=== PATIENT | male | born 1940 | race Caucasian/White ===

== ENCOUNTER 2016-05-12 12:18 | Outpatient (CLI) | payer OTHER | END 2016-05-12 12:19 | disposition home or self-care (01) | DX: Z79.01 Long term (current) use of anticoagulants (principal); I48.91 Unspecified atrial fibrillation ==

== ENCOUNTER 2016-05-15 12:39 | Outpatient (CLI) | payer OTHER | END 2016-05-15 12:40 | disposition home or self-care (01) | DX: Z79.01 Long term (current) use of anticoagulants (principal); I48.91 Unspecified atrial fibrillation ==

== ENCOUNTER 2016-05-19 12:33 | Outpatient (CLI) | payer OTHER | END 2016-05-19 12:34 | disposition home or self-care (01) | DX: Z79.01 Long term (current) use of anticoagulants (principal); I48.91 Unspecified atrial fibrillation ==

== ENCOUNTER 2016-05-25 12:29 | Outpatient (CLI) | payer OTHER | END 2016-05-25 12:30 | disposition home or self-care (01) | DX: Z79.01 Long term (current) use of anticoagulants (principal); I48.91 Unspecified atrial fibrillation ==

== ENCOUNTER 2016-06-02 13:46 | Outpatient (CLI) | payer OTHER | END 2016-06-02 13:47 | disposition home or self-care (01) | DX: T84.50XA Infection and inflammatory reaction due to unspecified internal joint prosthesis, initial encounter (principal); Z79.01 Long term (current) use of anticoagulants; I48.91 Unspecified atrial fibrillation ==

== ENCOUNTER 2016-06-09 15:21 | Outpatient (CLI) | payer OTHER | END 2016-06-09 15:22 | disposition home or self-care (01) | DX: Z79.01 Long term (current) use of anticoagulants (principal); I48.91 Unspecified atrial fibrillation ==

== ENCOUNTER 2016-06-18 12:43 | Outpatient (CLI) | payer OTHER | END 2016-06-18 12:44 | disposition home or self-care (01) | DX: Z79.01 Long term (current) use of anticoagulants (principal); I48.91 Unspecified atrial fibrillation ==

== ENCOUNTER 2016-06-25 13:17 | Outpatient (CLI) | payer OTHER | END 2016-06-25 13:18 | disposition home or self-care (01) | DX: Z79.01 Long term (current) use of anticoagulants (principal); I48.91 Unspecified atrial fibrillation ==

== ENCOUNTER 2016-07-06 13:40 | Outpatient (CLI) | payer OTHER | END 2016-07-06 13:41 | disposition home or self-care (01) | DX: Z79.01 Long term (current) use of anticoagulants (principal); I48.91 Unspecified atrial fibrillation ==

== ENCOUNTER 2016-07-20 13:02 | Outpatient (CLI) | payer OTHER | END 2016-07-20 13:03 | disposition home or self-care (01) | DX: Z79.01 Long term (current) use of anticoagulants (principal); I48.91 Unspecified atrial fibrillation ==

== ENCOUNTER 2016-09-29 13:56 | Outpatient (CLI) | payer OTHER | END 2016-09-29 13:57 | disposition home or self-care (01) | LOC: LAB.F 13:56 | PROVIDERS: ATTEND Pharmacist Pharmacotherapy | DX: I48.91 Unspecified atrial fibrillation (principal); Z79.01 Long term (current) use of anticoagulants | CPT/HCPCS: 85610 ==

== ENCOUNTER 2016-11-10 12:37 | Outpatient (CLI) | payer OTHER | END 2016-11-10 12:38 | disposition home or self-care (01) | DX: Z79.01 Long term (current) use of anticoagulants (principal) ==

== ENCOUNTER 2016-12-30 14:41 | Outpatient (CLI) | payer OTHER | END 2016-12-30 14:42 | disposition home or self-care (01) | LOC: LAB.F 14:41 | PROVIDERS: ATTEND Pharmacist Pharmacotherapy | DX: I48.91 Unspecified atrial fibrillation (principal); Z79.01 Long term (current) use of anticoagulants | CPT/HCPCS: 85610 ==

== ENCOUNTER 2017-02-16 12:48 | Outpatient (CLI) | payer OTHER | END 2017-02-16 12:49 | disposition home or self-care (01) | LOC: LAB.F 12:48 | PROVIDERS: ATTEND Pharmacist Pharmacotherapy | DX: I48.91 Unspecified atrial fibrillation (principal); Z79.01 Long term (current) use of anticoagulants | CPT/HCPCS: 85610 ==

== ENCOUNTER 2017-04-02 13:16 | Outpatient (CLI) | payer OTHER | END 2017-04-02 13:17 | disposition home or self-care (01) | LOC: LAB.F 13:16 | PROVIDERS: ATTEND Pharmacist Pharmacotherapy | DX: I48.91 Unspecified atrial fibrillation (principal); Z79.01 Long term (current) use of anticoagulants | CPT/HCPCS: 85610 ==

== ENCOUNTER 2017-05-20 14:43 | Outpatient (CLI) | payer OTHER | END 2017-05-20 14:44 | disposition home or self-care (01) | LOC: LAB.F 14:43 | PROVIDERS: ATTEND Pharmacist Pharmacotherapy | DX: I48.91 Unspecified atrial fibrillation (principal); Z79.01 Long term (current) use of anticoagulants | CPT/HCPCS: 85610 ==

== ENCOUNTER 2017-07-14 12:57 | Outpatient (CLI) | payer OTHER | END 2017-07-14 12:58 | disposition home or self-care (01) | LOC: LAB.F 12:57 | PROVIDERS: ATTEND Pharmacist Pharmacotherapy | DX: I48.91 Unspecified atrial fibrillation (principal); Z79.01 Long term (current) use of anticoagulants | CPT/HCPCS: 85610 ==

== ENCOUNTER 2017-09-23 14:29 | Outpatient (CLI) | payer OTHER | END 2017-09-23 14:30 | disposition home or self-care (01) | LOC: LAB.F 14:29 | PROVIDERS: ATTEND Pharmacist Pharmacotherapy | DX: I48.91 Unspecified atrial fibrillation (principal); Z79.01 Long term (current) use of anticoagulants | CPT/HCPCS: 85610 ==

== ENCOUNTER 2017-10-18 13:01 | Outpatient (CLI) | payer OTHER | END 2017-10-18 13:02 | disposition home or self-care (01) | LOC: LAB.F 13:01 | PROVIDERS: ATTEND Pharmacist Pharmacist Clinician (PhC)/ Clinical Pharmacy Specialist | DX: I48.2 Chronic atrial fibrillation (principal); Z79.01 Long term (current) use of anticoagulants | CPT/HCPCS: 85610 ==

== ENCOUNTER 2017-10-25 14:15 | Outpatient (CLI) | END 2017-10-25 14:16 | disposition home or self-care (01) ==

== ENCOUNTER 2017-11-01 14:22 | Outpatient (CLI) | payer OTHER | END 2017-11-01 14:23 | disposition home or self-care (01) | LOC: LAB.F 14:22 | PROVIDERS: ATTEND Pharmacist Pharmacist Clinician (PhC)/ Clinical Pharmacy Specialist | DX: I48.2 Chronic atrial fibrillation (principal); Z79.01 Long term (current) use of anticoagulants | CPT/HCPCS: 85610 ==

== ENCOUNTER 2017-11-08 13:37 | Outpatient (CLI) | payer OTHER | END 2017-11-08 13:38 | disposition home or self-care (01) | LOC: LAB.F 13:37 | PROVIDERS: ATTEND Pharmacist Pharmacist Clinician (PhC)/ Clinical Pharmacy Specialist | DX: I48.2 Chronic atrial fibrillation (principal); Z79.01 Long term (current) use of anticoagulants | CPT/HCPCS: 85610 ==

== ENCOUNTER 2017-11-25 13:26 | Outpatient (CLI) | payer OTHER | END 2017-11-25 13:27 | disposition home or self-care (01) | LOC: LAB.F 13:26 | PROVIDERS: ATTEND Pharmacist Pharmacist Clinician (PhC)/ Clinical Pharmacy Specialist | DX: I48.2 Chronic atrial fibrillation (principal); Z79.01 Long term (current) use of anticoagulants | CPT/HCPCS: 85610 ==

== ENCOUNTER 2018-01-20 13:40 | Outpatient (CLI) | payer OTHER | END 2018-01-20 13:41 | disposition home or self-care (01) | LOC: LAB.F 13:40 | PROVIDERS: ATTEND Pharmacist Pharmacist Clinician (PhC)/ Clinical Pharmacy Specialist | DX: I48.2 Chronic atrial fibrillation (principal); Z79.01 Long term (current) use of anticoagulants | CPT/HCPCS: 85610 ==

== ENCOUNTER 2018-03-17 13:50 | Outpatient (CLI) | payer OTHER ==
[2018-03-17 18:51] LABS: INR 2.1 (0.8-1.2); PT - PROTHROMBIN TIME 23.4 secs (9.9-12.6)
== END 2018-03-17 13:51 | disposition home or self-care (01) ==
LOC: LAB.F 13:50
PROVIDERS: ATTEND Pharmacist Pharmacist Clinician (PhC)/ Clinical Pharmacy Specialist
DX: I48.2 Chronic atrial fibrillation (principal); Z79.01 Long term (current) use of anticoagulants
CPT/HCPCS: 36415; 85610

== ENCOUNTER 2018-04-05 12:27 | Outpatient (CLI) | payer OTHER | END 2018-04-05 12:28 | disposition home or self-care (01) | LOC: LAB.F 12:27 | PROVIDERS: ATTEND Pharmacist Pharmacist Clinician (PhC)/ Clinical Pharmacy Specialist | DX: I48.2 Chronic atrial fibrillation (principal); Z79.01 Long term (current) use of anticoagulants | CPT/HCPCS: 85610 ==

== ENCOUNTER 2018-05-10 13:02 | Outpatient (CLI) | payer OTHER | END 2018-05-10 13:03 | disposition home or self-care (01) | LOC: LAB.F 13:02 | PROVIDERS: ATTEND Pharmacist Pharmacist Clinician (PhC)/ Clinical Pharmacy Specialist | DX: I48.2 Chronic atrial fibrillation (principal); Z79.01 Long term (current) use of anticoagulants | CPT/HCPCS: 85610 ==

== ENCOUNTER 2018-06-21 13:32 | Outpatient (CLI) | payer OTHER | END 2018-06-21 13:33 | disposition home or self-care (01) | LOC: LAB.F 13:32 | PROVIDERS: ATTEND Pharmacist Pharmacist Clinician (PhC)/ Clinical Pharmacy Specialist | DX: I48.2 Chronic atrial fibrillation (principal); Z79.01 Long term (current) use of anticoagulants | CPT/HCPCS: 85610 ==

== ENCOUNTER 2018-07-19 13:11 | Outpatient (CLI) | payer OTHER | END 2018-07-19 13:12 | disposition home or self-care (01) | LOC: LAB.F 13:11 | PROVIDERS: ATTEND Pharmacist Pharmacist Clinician (PhC)/ Clinical Pharmacy Specialist | DX: I48.2 Chronic atrial fibrillation (principal); Z79.01 Long term (current) use of anticoagulants | CPT/HCPCS: 85610 ==

== ENCOUNTER 2018-08-30 12:45 | Outpatient (CLI) | payer OTHER | END 2018-08-30 12:46 | disposition home or self-care (01) | LOC: LAB.F 12:45 | PROVIDERS: ATTEND Pharmacist Pharmacist Clinician (PhC)/ Clinical Pharmacy Specialist | DX: I48.2 Chronic atrial fibrillation (principal); Z79.01 Long term (current) use of anticoagulants | CPT/HCPCS: 85610 ==

== ENCOUNTER 2018-10-11 12:44 | Outpatient (CLI) | payer OTHER | END 2018-10-11 12:45 | disposition home or self-care (01) | LOC: LAB.F 12:44 | PROVIDERS: ATTEND Pharmacist | DX: I48.2 Chronic atrial fibrillation (principal); Z79.01 Long term (current) use of anticoagulants | CPT/HCPCS: 85610 ==

== ENCOUNTER 2018-11-22 13:57 | Outpatient (CLI) | payer OTHER | END 2018-11-22 13:58 | disposition home or self-care (01) | LOC: LAB.S 13:57 | PROVIDERS: ATTEND Pharmacist | DX: Z79.01 Long term (current) use of anticoagulants (principal); I48.2 Chronic atrial fibrillation | CPT/HCPCS: 85610 ==

== ENCOUNTER 2018-12-29 13:26 | Outpatient (CLI) | payer OTHER | END 2018-12-29 13:27 | disposition home or self-care (01) | LOC: LAB.S 13:26 | PROVIDERS: ATTEND Pharmacist | DX: Z79.01 Long term (current) use of anticoagulants (principal); I48.2 Chronic atrial fibrillation | CPT/HCPCS: 85610 ==

== ENCOUNTER 2019-01-30 12:27 | Outpatient (CLI) | payer OTHER | END 2019-01-30 12:28 | disposition home or self-care (01) | LOC: LAB.S 12:27 | PROVIDERS: ATTEND Pharmacist Pharmacist Clinician (PhC)/ Clinical Pharmacy Specialist | DX: Z51.81 Encounter for therapeutic drug level monitoring (principal); Z79.01 Long term (current) use of anticoagulants | CPT/HCPCS: 85610 ==

== ENCOUNTER 2019-02-02 08:00 | Outpatient (CLI) | payer OTHER | END 2019-02-02 23:59 | disposition home or self-care (01) | LOC: LAB.S 08:00 | PROVIDERS: ATTEND Pharmacist | DX: Z79.01 Long term (current) use of anticoagulants (principal); I48.91 Unspecified atrial fibrillation | CPT/HCPCS: 85610 ==

== ENCOUNTER 2019-02-06 12:45 | Outpatient (CLI) | payer OTHER | END 2019-02-06 12:46 | disposition home or self-care (01) | LOC: LAB.S 12:45 | PROVIDERS: ATTEND Pharmacist | DX: Z79.01 Long term (current) use of anticoagulants (principal); I48.91 Unspecified atrial fibrillation | CPT/HCPCS: 85610 ==

== ENCOUNTER 2019-02-09 14:16 | Outpatient (CLI) | payer OTHER | END 2019-02-09 14:17 | disposition home or self-care (01) | LOC: LAB.S 14:16 | PROVIDERS: ATTEND Pharmacist | DX: Z79.01 Long term (current) use of anticoagulants (principal); I48.91 Unspecified atrial fibrillation | CPT/HCPCS: 85610 ==

== ENCOUNTER 2019-02-16 12:27 | Outpatient (CLI) | payer OTHER | END 2019-02-16 12:28 | disposition home or self-care (01) | LOC: LAB.S 12:27 | PROVIDERS: ATTEND Pharmacist | DX: Z79.01 Long term (current) use of anticoagulants (principal); I48.91 Unspecified atrial fibrillation | CPT/HCPCS: 85610 ==

== ENCOUNTER 2019-03-01 14:48 | Outpatient (CLI) | payer OTHER | END 2019-03-01 14:49 | disposition home or self-care (01) | LOC: LAB.S 14:48 | PROVIDERS: ATTEND Pharmacist | DX: Z79.01 Long term (current) use of anticoagulants (principal); I48.91 Unspecified atrial fibrillation | CPT/HCPCS: 85610 ==

== ENCOUNTER 2019-04-03 13:12 | Outpatient (CLI) | payer OTHER | END 2019-04-03 13:13 | disposition home or self-care (01) | LOC: LAB.S 13:12 | PROVIDERS: ATTEND Pharmacist | DX: Z79.01 Long term (current) use of anticoagulants (principal); I48.91 Unspecified atrial fibrillation | CPT/HCPCS: 85610 ==

== ENCOUNTER 2019-05-01 13:16 | Outpatient (CLI) | payer OTHER | END 2019-05-01 13:17 | disposition home or self-care (01) | LOC: LAB.S 13:16 | PROVIDERS: ATTEND Pharmacist | DX: Z79.01 Long term (current) use of anticoagulants (principal); I48.91 Unspecified atrial fibrillation | CPT/HCPCS: 85610 ==

== ENCOUNTER 2019-05-15 13:04 | Outpatient (CLI) | payer MEDICARE, OTHER | END 2019-05-15 13:05 | disposition home or self-care (01) | LOC: LAB.S 13:04 | PROVIDERS: ATTEND Pharmacist | DX: Z79.01 Long term (current) use of anticoagulants (principal); I48.91 Unspecified atrial fibrillation | CPT/HCPCS: 85610 ==

== ENCOUNTER 2019-06-14 14:11 | Outpatient (CLI) | payer OTHER | END 2019-06-14 14:12 | disposition home or self-care (01) | LOC: LAB.S 14:11 | PROVIDERS: ATTEND Pharmacist | DX: I48.91 Unspecified atrial fibrillation (principal); Z79.01 Long term (current) use of anticoagulants | CPT/HCPCS: 85610 ==

== ENCOUNTER 2019-10-03 13:53 | Outpatient (CLI) | payer OTHER | END 2019-10-03 13:54 | disposition home or self-care (01) | LOC: LAB.S 13:53 | PROVIDERS: ATTEND Nurse Practitioner | DX: I48.91 Unspecified atrial fibrillation (principal); Z79.01 Long term (current) use of anticoagulants | CPT/HCPCS: 85610 ==

== ENCOUNTER 2019-12-13 13:50 | Outpatient (CLI) | payer OTHER | END 2019-12-13 13:51 | disposition home or self-care (01) | LOC: LAB.S 13:50 | PROVIDERS: ATTEND Nurse Practitioner | DX: Z79.01 Long term (current) use of anticoagulants (principal); I48.91 Unspecified atrial fibrillation | CPT/HCPCS: 85610 ==

== ENCOUNTER 2020-01-11 14:23 | Outpatient (CLI) | payer OTHER | END 2020-01-11 14:24 | disposition home or self-care (01) | LOC: LAB.S 14:23 | PROVIDERS: ATTEND Nurse Practitioner | DX: I48.91 Unspecified atrial fibrillation (principal); Z79.01 Long term (current) use of anticoagulants | CPT/HCPCS: 85610 ==

== ENCOUNTER 2020-02-29 13:42 | Outpatient (CLI) | payer OTHER | END 2020-02-29 13:43 | disposition home or self-care (01) | LOC: LAB.S 13:42 | PROVIDERS: ATTEND Nurse Practitioner | DX: I48.91 Unspecified atrial fibrillation (principal); Z79.01 Long term (current) use of anticoagulants | CPT/HCPCS: 85610 ==

== ENCOUNTER 2020-03-21 14:12 | Outpatient (CLI) | payer OTHER | END 2020-03-21 14:13 | disposition home or self-care (01) | LOC: LAB.S 14:12 | PROVIDERS: ATTEND Nurse Practitioner | DX: I48.91 Unspecified atrial fibrillation (principal); Z79.01 Long term (current) use of anticoagulants | CPT/HCPCS: 85610 ==

== ENCOUNTER 2020-03-25 09:51 | Outpatient (CLI) | payer OTHER ==
[2020-03-25 15:36] LABS: BASOPHILS # (AUTO) 0.1 10^3/uL (0.0-0.1); BASOPHILS % (AUTO) 0.8 %; EOSINOPHILS # (AUTO) 0.6 10^3/uL (0.0-0.7); EOSINOPHILS % (AUTO) 8.3 %; HGB - HEMOGLOBIN 13.8 g/dL (14.0-18.0); LYMPHOCYTES # (AUTO) 1.6 10^3/uL (1.5-3.5); LYMPHOCYTES % (AUTO) 24.1 %; MEAN CORPUSCULAR HGB CONC 32.9 g/dL (32.0-36.0); MEAN CORPUSCULAR VOLUME 91.1 fL (80.0-94.0); MEAN PLATELET VOLUME 10.1 fL (7.4-11.4); MONOCYTES # (AUTO) 0.7 10^3/uL (0.0-1.0); MONOCYTES % (AUTO) 10.9 %; NEUTROPHILS # (AUTO) 3.7 10^3/uL (1.5-6.6); NEUTROPHILS % (AUTO) 55.7 %; PLT - PLATELET COUNT 293 10^3/uL (130-450); RED CELL DISTRIBUTION WIDTH 13.7 % (12.0-15.0); WHITE BLOOD COUNT 6.6 x10^3/uL (4.8-10.8)
[2020-03-25 15:50] LABS: ALBUMIN 4.1 g/dL (3.2-5.5); ALBUMIN/GLOBULIN RATIO 1.4 (1.0-2.2); ALKALINE PHOSPHATASE 53 IU/L (42-121); ALT ALANINE AMINOTRANSFERASE 21 IU/L (10-60); AST ASPARTATE AMINOTRANSFERASE 26 IU/L (10-42); BILIRUBIN,TOTAL 0.9 mg/dL (0.2-1.0); BUN - BLOOD UREA NITROGEN 26 mg/dL (6-20); CARBON DIOXIDE - CO2 30 mmol/L (21-32); CHLORIDE 96 mmol/L (101-111); CHOLESTEROL 210 mg/dL; CREATININE 1.1 mg/dL (0.6-1.2); GLUCOSE 94 mg/dL (70-100); HDL CHOLESTEROL 69 mg/dL; LDL CHOLESTEROL,CALCULATED 119 mg/dL; LDL/HDL RATIO 1.7 (<3.6); SODIUM 135 mmol/L (135-145); TOTAL PROTEIN 7.1 g/dL (6.7-8.2); VLDL CHOLESTEROL 22 mg/dL
[2020-03-25 16:01] LABS: MICROALBUMIN,URINE < 0.2 mg/dL (0-300.0)
== END 2020-03-25 09:52 | disposition home or self-care (01) ==
LOC: LAB.S 09:51
PROVIDERS: ATTEND Nurse Practitioner
DX: I48.91 Unspecified atrial fibrillation (principal)
CPT/HCPCS: 36415; 80053; 80061; 82043; 82570; 83721; 84443; 85025

== ENCOUNTER 2020-05-10 10:57 | Outpatient (CLI) | payer OTHER ==
--- OUTSIDE RECORDS SUMMARY | 2020-05-15 01:35 | EXTERNAL MEDICAL SUMMARY RPT | Continuity of Care Document ---
:1940 Demographics Phone Unavailable Preferred Language Unknown Marital Status Unknown Denominational Affiliation Unknown Race Unknown Ethnic Group Unknown Author Organization [facility] Address [address] [id number] Phone Care Team Providers Name Role Phone Staiger Unavailable Unavailable Provider Unavailable Unavailable MARIE Unavailable Unavailable Rick Unavailable Unavailable Wittkowsky Unavailable Unavailable Cook Unavailable Unavailable Problems date description facility 2014-01-24 10:21 ATRIAL FIBRILLATION [facility] 2014-01-24 10:21 ANTICOAGULANTS,LT,CURRENT USE [facility] 2014-01-30 09:56 ATRIAL FIBRILLATION [facility] 2014-01-30 09:56 ANTICOAGULANTS,LT,CURRENT USE [facility] 2014-02-06 09:59 ATRIAL FIBRILLATION [facility] 2014-02-06 09:59 ANTICOAGULANTS,LT,CURRENT USE [facility] 2014-02-27 11:08 ATRIAL FIBRILLATION [facility] 2014-02-27 11:08 ANTICOAGULANTS,LT,CURRENT USE [facility] 2014-03-16 14:10 ATRIAL FIBRILLATION [facility] 2014-03-16 14:10 ANTICOAGULANTS,LT,CURRENT USE [facility] 2014-04-30 11:37 ATRIAL FIBRILLATION [facility] 2014-04-30 11:37 ANTICOAGULANTS,LT,CURRENT USE [facility] 2014-05-29 15:03 ATRIAL FIBRILLATION [facility] 2014-05-29 15:03 ANTICOAGULANTS,LT,CURRENT USE [facility] 2014-07-11 07:00 ATRIAL FIBRILLATION [facility] 2014-07-11 07:00 ANTICOAGULANTS,LT,CURRENT USE [facility] 2014-08-21 08:00 ATRIAL FIBRILLATION [facility] 2014-08-21 08:00 ANTICOAGULANTS,LT,CURRENT USE [facility] 2014-11-14 12:41 ATRIAL FIBRILLATION [facility] 2014-11-14 12:41 ANTICOAGULANTS,LT,CURRENT USE [facility] 2014-11-23 14:23 ATRIAL FIBRILLATION [facility] 2014-11-23 14:23 ANTICOAGULANTS,LT,CURRENT USE [facility] 2014-12-26 08:00 ATRIAL FIBRILLATION [facility] 2014-12-26 08:00 ANTICOAGULANTS,LT,CURRENT USE [facility] 2015-02-04 11:58 UNSPECIFIED ATRIAL FIBRILLATION [facility] 2015-02-04 11:58 [facility] (CURRENT[facility] USE OF [facility] ANTICOAGULANTS 2015-03-18 14:20 UNSPECIFIED ATRIAL FIBRILLATION [facility] 2015-03-18 14:20 [facility]CURRENT[facility] USE OF [facility] ANTICOAGULANTS 2015-05-08 08:00 UNSPECIFIED ATRIAL FIBRILLATION [facility] 2015-05-08 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 2015-06-19 10:47 UNSPECIFIED ATRIAL FIBRILLATION [facility] 2015-06-19 10:47 [facility] (CURRENT[facility] USE OF [facility] ANTICOAGULANTS 2015-10-08 13:45 UNSPECIFIED ATRIAL FIBRILLATION [facility] 2015-10-08 13:45 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 2015-10-22 11:35 UNSPECIFIED ATRIAL FIBRILLATION [facility] 2015-10-22 11:35 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 2015-10-30 14:14 UNSPECIFIED ATRIAL FIBRILLATION [facility] 2015-10-30 14:14 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 2015-11-22 13:59 UNSPECIFIED ATRIAL FIBRILLATION [facility] 2015-11-22 13:59 [facility]CURRENT[facility] USE OF [facility] ANTICOAGULANTS 2016-01-03 14:40 UNSPECIFIED ATRIAL FIBRILLATION [facility] 2016-01-03 14:40 [facility]CURRENT[facility] USE OF [facility] ANTICOAGULANTS 2016-02-06 14:40 UNSPECIFIED ATRIAL FIBRILLATION [facility] 2016-02-06 14:40 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 2016-02-27 15:11 UNSPECIFIED ATRIAL FIBRILLATION [facility] 2016-02-27 15:11 [facility]CURRENT[facility] USE OF [facility] ANTICOAGULANTS 2016-04-02 15:10 UNSPECIFIED ATRIAL FIBRILLATION [facility] 2016-04-02 15:10 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 2016-05-12 12:18 UNSPECIFIED ATRIAL FIBRILLATION [facility] 2016-05-12 12:18 [facility]CURRENT[facility] USE OF [facility] ANTICOAGULANTS 2016-05-15 12:39 UNSPECIFIED ATRIAL FIBRILLATION [facility] 2016-05-15 12:39 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 2016-05-19 12:33 UNSPECIFIED ATRIAL FIBRILLATION [facility] 2016-05-19 12:33 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 2016-05-25 12:29 UNSPECIFIED ATRIAL FIBRILLATION [facility] 2016-05-25 12:29 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 2016-06-02 13:46 UNSPECIFIED ATRIAL FIBRILLATION [facility] 2016-06-02 13:46 INFECT/INFLM REACTION DUE TO UNSP [facility] INT JOINT PROSTH, INIT 2016-06-02 13:46 [facility]CURRENT[facility] USE OF [facility] ANTICOAGULANTS 2016-06-09 15:21 UNSPECIFIED ATRIAL FIBRILLATION [facility] 2016-06-09 15:21 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 2016-06-18 12:43 UNSPECIFIED ATRIAL FIBRILLATION [facility] 2016-06-18 12:43 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 2016-06-25 13:17 UNSPECIFIED ATRIAL FIBRILLATION [facility] 2016-06-25 13:17 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 2016-07-06 13:40 UNSPECIFIED ATRIAL FIBRILLATION [facility] 2016-07-06 13:40 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 2016-07-20 13:02 UNSPECIFIED ATRIAL FIBRILLATION [facility] 2016-07-20 13:02 [facility]CURRENT[facility] USE OF [facility] ANTICOAGULANTS 2016-09-29 13:56 UNSPECIFIED ATRIAL FIBRILLATION [facility] 2016-09-29 13:56 [facility]CURRENT[facility] USE OF [facility] ANTICOAGULANTS 2016-11-10 12:37 [facility]CURRENT[facility] USE OF [facility] ANTICOAGULANTS 2016-12-30 14:41 UNSPECIFIED ATRIAL FIBRILLATION [facility] 2016-12-30 14:41 [facility]CURRENT[facility] USE OF [facility] ANTICOAGULANTS 2017-02-16 12:48 UNSPECIFIED ATRIAL FIBRILLATION [facility] 2017-02-16 12:48 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 2017-04-02 13:16 UNSPECIFIED ATRIAL FIBRILLATION [facility] 2017-04-02 13:16 [facility]CURRENT[facility] USE OF [facility] ANTICOAGULANTS 2017-05-20 14:43 UNSPECIFIED ATRIAL FIBRILLATION [facility] 2017-05-20 14:43 [facility]CURRENT[facility] USE OF [facility] ANTICOAGULANTS 2017-07-14 12:57 UNSPECIFIED ATRIAL FIBRILLATION [facility] 2017-07-14 12:57 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 2017-09-23 14:29 UNSPECIFIED ATRIAL FIBRILLATION [facility] 2017-09-23 14:29 [facility]CURRENT[facility] USE OF [facility] ANTICOAGULANTS 2017-10-18 13:01 CHRONIC ATRIAL FIBRILLATION [facility] 2017-10-18 13:01 [facility]CURRENT[facility] USE OF [facility] ANTICOAGULANTS 2017-10-25 14:15 CHRONIC ATRIAL FIBRILLATION [facility] 2017-10-25 14:15 [facility]CURRENT[facility] USE OF [facility] ANTICOAGULANTS 2017-11-01 14:22 CHRONIC ATRIAL FIBRILLATION [facility] 2017-11-01 14:22 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 2017-11-08 13:37 CHRONIC ATRIAL FIBRILLATION [facility] 2017-11-08 13:37 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 2017-11-25 13:26 CHRONIC ATRIAL FIBRILLATION [facility] 2017-11-25 13:26 [facility]CURRENT[facility] USE OF [facility] ANTICOAGULANTS 2018-01-20 13:40 CHRONIC ATRIAL FIBRILLATION [facility] 2018-01-20 13:40 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 2018-03-17 13:50 CHRONIC ATRIAL FIBRILLATION [facility] 2018-03-17 13:50 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 2018-04-05 12:27 CHRONIC ATRIAL FIBRILLATION [facility] 2018-04-05 12:27 [facility]CURRENT[facility] USE OF [facility] ANTICOAGULANTS 2018-05-10 13:02 CHRONIC ATRIAL FIBRILLATION [facility] 2018-05-10 13:02 [facility]CURRENT[facility] USE OF [facility] ANTICOAGULANTS 2018-06-21 13:32 CHRONIC ATRIAL FIBRILLATION [facility] 2018-06-21 13:32 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 2018-07-19 13:11 CHRONIC ATRIAL FIBRILLATION [facility] 2018-07-19 13:11 [facility]CURRENT[facility] USE OF [facility] ANTICOAGULANTS 2018-08-30 12:45 CHRONIC ATRIAL FIBRILLATION [facility] 2018-08-30 12:45 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 2018-10-11 12:44 CHRONIC ATRIAL FIBRILLATION [facility] 2018-10-11 12:44 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 2018-11-22 13:57 CHRONIC ATRIAL FIBRILLATION [facility] 2018-11-22 13:57 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 2018-12-29 13:26 CHRONIC ATRIAL FIBRILLATION [facility] 2018-12-29 13:26 [facility]CURRENT[facility] USE OF [facility] ANTICOAGULANTS 2019-01-30 12:27 ENCOUNTER FOR THERAPEUTIC DRUG [facility] LEVEL MONITORING 2019-01-30 12:27 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 2019-02-02 08:00 UNSPECIFIED ATRIAL FIBRILLATION [facility] 2019-02-02 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 2019-02-06 12:45 UNSPECIFIED ATRIAL FIBRILLATION [facility] 2019-02-06 12:45 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 2019-02-09 14:16 UNSPECIFIED ATRIAL FIBRILLATION [facility] 2019-02-09 14:16 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 2019-02-16 12:27 UNSPECIFIED ATRIAL FIBRILLATION [facility] 2019-02-16 12:27 [facility]CURRENT[facility] USE OF [facility] ANTICOAGULANTS 2019-03-01 14:48 UNSPECIFIED ATRIAL FIBRILLATION [facility] 2019-03-01 14:48 [facility]CURRENT[facility] USE OF [facility] ANTICOAGULANTS 2019-03-15 13:57 UNSPECIFIED ATRIAL FIBRILLATION [facility] 2019-03-15 13:57 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 2019-04-03 13:12 UNSPECIFIED ATRIAL FIBRILLATION [facility] 2019-04-03 13:12 [facility]CURRENT[facility] USE OF [facility] ANTICOAGULANTS 2019-05-01 13:16 UNSPECIFIED ATRIAL FIBRILLATION [facility] 2019-05-01 13:16 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 2019-05-15 13:04 UNSPECIFIED ATRIAL FIBRILLATION [facility] 2019-05-15 13:04 [facility]CURRENT[facility] USE OF [facility] ANTICOAGULANTS 2019-06-14 14:11 UNSPECIFIED ATRIAL FIBRILLATION [facility] 2019-06-14 14:11 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 2019-10-03 13:53 UNSPECIFIED ATRIAL FIBRILLATION [facility] 2019-10-03 13:53 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 2019-12-13 13:50 UNSPECIFIED ATRIAL FIBRILLATION [facility] 2019-12-13 13:50 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 2020-01-11 14:23 UNSPECIFIED ATRIAL FIBRILLATION [facility] 2020-01-11 14:23 [facility]CURRENT[facility] USE OF [facility] ANTICOAGULANTS 2020-02-29 13:42 UNSPECIFIED ATRIAL FIBRILLATION [facility] 2020-02-29 13:42 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
== END 2020-05-10 10:58 | disposition home or self-care (01) ==
LOC: LAB.S 10:57
PROVIDERS: ATTEND Nurse Practitioner
DX: Z79.01 Long term (current) use of anticoagulants (principal); I48.91 Unspecified atrial fibrillation
CPT/HCPCS: 85610

== ENCOUNTER 2020-07-19 14:20 | Outpatient (CLI) | payer OTHER | END 2020-07-19 14:21 | disposition home or self-care (01) | LOC: LAB.S 14:20 | PROVIDERS: ATTEND Nurse Practitioner | DX: Z79.01 Long term (current) use of anticoagulants (principal); I48.91 Unspecified atrial fibrillation | CPT/HCPCS: 85610 ==

== ENCOUNTER 2020-10-14 13:52 | Outpatient (CLI) | payer OTHER | END 2020-10-14 13:53 | disposition home or self-care (01) | LOC: LAB.S 13:52 | PROVIDERS: ATTEND Nurse Practitioner | DX: Z79.01 Long term (current) use of anticoagulants (principal); I48.91 Unspecified atrial fibrillation | CPT/HCPCS: 36416; 85610 ==

== ENCOUNTER 2020-12-30 15:05 | Outpatient (CLI) | payer OTHER | END 2020-12-30 15:06 | disposition home or self-care (01) | LOC: LAB.S 15:05 | PROVIDERS: ATTEND Nurse Practitioner | DX: Z79.01 Long term (current) use of anticoagulants (principal); I48.91 Unspecified atrial fibrillation | CPT/HCPCS: 36416; 85610 ==

== ENCOUNTER 2021-03-11 15:06 | Outpatient (CLI) | payer OTHER | END 2021-03-11 15:07 | disposition home or self-care (01) | LOC: LAB.S 15:06 | PROVIDERS: ATTEND Nurse Practitioner | DX: Z79.01 Long term (current) use of anticoagulants (principal); I48.91 Unspecified atrial fibrillation | CPT/HCPCS: 36416; 85610 ==

== ENCOUNTER 2021-05-23 15:22 | Outpatient (CLI) | payer OTHER | END 2021-05-23 15:23 | disposition home or self-care (01) | LOC: LAB.S 15:22 | PROVIDERS: ATTEND Nurse Practitioner | DX: Z79.01 Long term (current) use of anticoagulants (principal); I48.91 Unspecified atrial fibrillation | CPT/HCPCS: 36416; 85610 ==

== ENCOUNTER 2021-10-29 14:34 | Outpatient (CLI) | payer OTHER | END 2021-10-29 14:35 | disposition home or self-care (01) | LOC: LAB.S 14:34 | PROVIDERS: ATTEND Nurse Practitioner | DX: I48.91 Unspecified atrial fibrillation (principal); Z79.01 Long term (current) use of anticoagulants | CPT/HCPCS: 36416; 85610 ==

== ENCOUNTER 2021-11-08 20:07 | Emergency (ER) | payer OTHER ==
[2021-11-08] MEDS ORDERED: BACITRACIN ZINC OINT 1 PACKET TOP STA (20:54)
[2021-11-08] MEDS ORDERED: TETANUS/DIPHTHERIA/PERTUSSIS 0.5 ML SYRINGE IM ONE (21:14)
[2021-11-08] MEDS ORDERED: lidocaine 1% 20 ML MDV SUBQ ONE (21:14)
--- NOTE | 2021-11-08 21:17 | ED Physician Documentation ---
History of Present Illness - Stated complaint Stated Complaint: R ARM MIDDLE FINGER LAC - Chief complaint Chief Complaint: Laceration - Additonal information Additional information: 80-year-old right-handed male presents to the emergency department for evaluation of a 3.5 cm laceration to the dorsum of his right middle finger sustained when using a band saw at home. Uncertain of last tetanus. He is anticoagulated on Coumadin secondary to a history of atrial fibrillation. Bleeding has been difficult to control. Review of Systems Constitutional: denies: Fever, Chills Cardiac: reports: Reviewed and negative Respiratory: reports: Reviewed and negative Skin: reports: Laceration (s) Musculoskeletal: denies: Neck pain, Back pain Neurologic: reports: Reviewed and negative PD PAST MEDICAL HISTORY - Allergies Allergies/Adverse Reactions: Allergies Allergy/AdvReac Type Severity Reaction Status Date / Time diltiazem Allergy Unknown Verified 11/08/21 20:26 sulfamethoxazole Allergy Rash Verified 11/08/21 20:26 [From Bactrim] trimethoprim [From Bactrim] Allergy Rash Verified 11/08/21 20:26 PD ED PE EXPANDED - Extremities Extremities: Right finger(s) (3.5 cm laceration dorsum right middle finger between PIP and DIP joint. Preserved flexion extension against resistance. Neurovascularly intact) Results - Vitals Vitals: Vital Signs - 24 hr 11/08/21 20:18 Temperature 36.4 C L Heart Rate 50 L Respiratory 16 Rate Blood Pressure 172/74 H O2 Saturation 99 Oxygen O2 Source Room air Procedures - Laceration (location) right middle finger Length in cm: 3.5 Wound type: Linear, Into subcut fat Neurovascular status: Sensory intact, Motor intact Tendon involvement: Tendon intact Anesthesia: Lidocaine 1% Wound preparation: Chlorhexadine, Hibiclens, Irrigated copiously NS Skin layer closure: Nylon, Interrupted (8), Sutures - enter # (8) Other: Patient tolerated well, No complications, Neurovascular intact, Tetanus booster given PD MEDICAL DECISION MAKING - ED course Complexity details: re-evaluated patient, considered differential, d/w patient ED course: 80-year-old male presents emergency department for evaluation of laceration on the dorsum of his right middle finger sustained when using a band saw at home. On exam he has no evidence of tendon injury. Initially the wound bled quite heavily given that he is anticoagulated with Coumadin. However after appropriate anesthetizing the finger and irrigating and beginning to approximate the wound the bleeding stopped. Tetanus was updated today in the emergency department. Emergent return precautions and wound care was discussed. Departure - Departure Disposition: 01 Home, Self Care Clinical Impression: Finger laceration Qualifiers: Encounter type: initial encounter Finger: middle finger Damage to nail status: without damage Foreign body presence: without foreign body Laterality: right Qualified Code(s): S61.212A - Laceration without foreign body of right middle finger without damage to nail, initial encounter Instructions: ED Laceration Hand Comments: Your suture(s) should be removed in 7 to 10 days. In 24 hours you may remove the dressing wash gently with warm soap and water, apply any antibiotic ointment and a simple bandage. Your tetanus was updated today in the emergency department and should be good for the next 7 to 10 years For about the next week I would like you to wear the aluminum finger splint to help prevent the finger from moving excessively as the laceration heals. Please attempt to keep your wound clean and dry. Do not submerge it in dirty dishwater or bath water. Return to the emergency department if you have any concerns of infection such as redness, fevers milky drainage increased pain.
[2021-11-08 21:58] VITALS: BP 178/89
== END 2021-11-08 21:57 | disposition home or self-care (01) ==
LOC: ED 20:07
DX: S61.212A Laceration without foreign body of right middle finger without damage to nail, initial encounter (principal); W31.2XXA Contact with powered woodworking and forming machines, initial encounter; Y92.009 Unspecified place in unspecified non-institutional (private) residence as the place of occurrence of the external cause; I48.91 Unspecified atrial fibrillation; Z79.01 Long term (current) use of anticoagulants; Z23 Encounter for immunization
CPT/HCPCS: 12002; 99283

== ENCOUNTER 2022-01-27 14:55 | Outpatient (CLI) | payer OTHER | END 2022-01-27 14:56 | disposition home or self-care (01) | LOC: LAB.S 14:55 | PROVIDERS: ATTEND Nurse Practitioner | DX: Z79.01 Long term (current) use of anticoagulants (principal); I48.91 Unspecified atrial fibrillation | CPT/HCPCS: 36416; 85610 ==

== ENCOUNTER 2022-05-01 14:02 | Outpatient (CLI) | payer OTHER | END 2022-05-01 14:03 | disposition home or self-care (01) | LOC: LAB.S 14:02 | PROVIDERS: ATTEND Nurse Practitioner | DX: Z79.01 Long term (current) use of anticoagulants (principal); I48.91 Unspecified atrial fibrillation | CPT/HCPCS: 36416; 85610 ==

== ENCOUNTER 2022-06-22 14:06 | Outpatient (CLI) | payer OTHER | END 2022-06-22 14:07 | disposition home or self-care (01) | LOC: LAB.S 14:06 | PROVIDERS: ATTEND Nurse Practitioner | DX: Z79.01 Long term (current) use of anticoagulants (principal); I48.91 Unspecified atrial fibrillation | CPT/HCPCS: 36416; 85610 ==

== ENCOUNTER 2022-07-15 14:13 | Outpatient (CLI) | payer OTHER | END 2022-07-15 14:14 | disposition home or self-care (01) | LOC: LAB.S 14:13 | PROVIDERS: ATTEND Nurse Practitioner | DX: Z79.01 Long term (current) use of anticoagulants (principal); I48.91 Unspecified atrial fibrillation | CPT/HCPCS: 36416; 85610 ==

== ENCOUNTER 2022-07-17 13:59 | Outpatient (CLI) | payer OTHER | END 2022-07-17 14:00 | disposition home or self-care (01) | LOC: LAB.S 13:59 | PROVIDERS: ATTEND Nurse Practitioner | DX: Z79.01 Long term (current) use of anticoagulants (principal); I48.91 Unspecified atrial fibrillation | CPT/HCPCS: 36416; 85610 ==

== ENCOUNTER 2022-10-15 14:59 | Outpatient (CLI) | payer OTHER | END 2022-10-15 15:00 | disposition home or self-care (01) | LOC: LAB.S 14:59 | PROVIDERS: ATTEND Nurse Practitioner | DX: Z79.01 Long term (current) use of anticoagulants (principal); I48.91 Unspecified atrial fibrillation | CPT/HCPCS: 36416; 85610 ==

== ENCOUNTER 2022-11-06 14:09 | Outpatient (CLI) | payer OTHER | END 2022-11-06 14:10 | disposition home or self-care (01) | LOC: LAB.S 14:09 | PROVIDERS: ATTEND Nurse Practitioner | DX: Z79.01 Long term (current) use of anticoagulants (principal); I48.91 Unspecified atrial fibrillation | CPT/HCPCS: 36416; 85610 ==

== ENCOUNTER 2023-04-30 14:21 | Outpatient (CLI) | payer OTHER | END 2023-04-30 14:22 | disposition home or self-care (01) | LOC: LAB.S 14:21 | PROVIDERS: ATTEND Nurse Practitioner | DX: I48.91 Unspecified atrial fibrillation (principal); Z79.01 Long term (current) use of anticoagulants | CPT/HCPCS: 36416; 85610 ==

== ENCOUNTER 2023-05-28 14:45 | Outpatient (CLI) | payer OTHER | END 2023-05-28 14:46 | disposition home or self-care (01) | LOC: LAB.S 14:45 | PROVIDERS: ATTEND Nurse Practitioner | DX: I48.91 Unspecified atrial fibrillation (principal); Z79.01 Long term (current) use of anticoagulants | CPT/HCPCS: 36416; 85610 ==

== ENCOUNTER 2023-06-30 14:44 | Outpatient (CLI) | payer OTHER | END 2023-06-30 14:45 | disposition home or self-care (01) | LOC: LAB.S 14:44 | PROVIDERS: ATTEND Nurse Practitioner | DX: I48.91 Unspecified atrial fibrillation (principal); Z79.01 Long term (current) use of anticoagulants | CPT/HCPCS: 36416; 85610 ==

== ENCOUNTER 2023-10-11 14:29 | Outpatient (CLI) | payer OTHER | END 2023-10-11 14:30 | disposition home or self-care (01) | LOC: LAB.S 14:29 | PROVIDERS: ATTEND Nurse Practitioner | DX: I48.91 Unspecified atrial fibrillation (principal); Z79.01 Long term (current) use of anticoagulants | CPT/HCPCS: 36416; 85610 ==

== ENCOUNTER 2023-12-22 14:11 | Outpatient (CLI) | payer OTHER | END 2023-12-22 14:12 | disposition home or self-care (01) | LOC: LAB.S 14:11 | PROVIDERS: ATTEND Nurse Practitioner | DX: I48.91 Unspecified atrial fibrillation (principal); Z79.01 Long term (current) use of anticoagulants | CPT/HCPCS: 36416; 85610 ==